=== PATIENT | male | born 1990 | race African-American/Black ===

== ENCOUNTER 2020-03-30 23:08 | Emergency (ER) | payer OTHER ==
[~2020-03-30] VITALS: Ht 165.1 cm; Wt 59.9 kg
[~2020-03-30 23:08] MED LIST: FLAGYL500 MG PO; MOBIC7.5 MG PO
[2020-03-30] MEDS ORDERED: OMEPRAZOLE 20 M20 M1 PO (23:39)
[2020-03-30 23:45] VITALS: BP 123/61
== END 2020-03-30 23:42 | disposition home or self-care (01) ==
LOC: ER 23:08
DX: K21.9 Gastro-esophageal reflux disease without esophagitis (principal)

== ENCOUNTER 2020-06-24 16:23 | Emergency (ER) | payer OTHER ==
[~2020-06-24] VITALS: Ht 162.6 cm; Wt 59.0 kg
[~2020-06-24 16:23] MED LIST changes: +OMEPRAZOLE 20 M20 M1 PO
[2020-06-24 16:36] LABS: URINE BILIRUBIN NEGATIVE (Negative); URINE BLOOD 2+ (Negative); URINE CLARITY SL CLOUDY; URINE COLOR YELLOW; URINE GLUCOSE-RANDOM* NEGATIVE (Negative); URINE KETONES NEGATIVE (Negative); URINE NITRITE-REFLEX NEGATIVE (Negative); URINE PROTEIN (DIPSTICK) NEGATIVE (Negative); URINE SPECIFIC GRAVITY <= 1.005 (1.005-1.035); URINE UROBILINOGEN 0.2 E.U./dl (0.2-1.0)
[2020-06-24 16:41] LABS: URINE LEUKOCYTES-REFLEX 3+ (Negative)
[2020-06-24 17:07] LABS: URINE WBC-REFLEX >25 Many /HPF (0-5)
[2020-06-24 17:08] LABS: BACTERIA-REFLEX 1-9 Few /HPF (None Seen); CASTS None Seen /LPF (None Seen); CRYSTALS None Seen /LPF (None Seen); SQUAMOUS None Seen /LPF (0-3); URINE RBC 0-2 Rare /HPF (0-2)
[2020-06-24 17:53] VITALS: BP 122/69
== END 2020-06-24 17:54 | disposition home or self-care (01) ==
LOC: ER 16:23
PROVIDERS: Physician Assistant
DX: Z20.2 Contact with and (suspected) exposure to infections with a predominantly sexual mode of transmission (principal); R30.0 Dysuria; R36.9 Urethral discharge, unspecified; R10.9 Unspecified abdominal pain

== ENCOUNTER 2020-08-27 17:43 | Emergency (ER) | payer OTHER ==
[~2020-08-27] VITALS: Ht 165.1 cm; Wt 59.0 kg
[2020-08-27] MEDS ORDERED: SUDOGEST30 MG PO (22:03)
[2020-08-27] MEDS ORDERED: IBUPROFEN 600600 M1 PO (22:03)
[2020-08-27 22:26] VITALS: BP 111/56
== END 2020-08-27 22:28 | disposition home or self-care (01) ==
LOC: ER 17:43
DX: J06.9 Acute upper respiratory infection, unspecified (principal); Z20.828 Contact with and (suspected) exposure to other viral communicable diseases

== ENCOUNTER 2021-05-01 17:05 | Emergency (ER) | payer OTHER ==
[~2021-05-01] VITALS: Ht 165.1 cm; Wt 61.2 kg
[~2021-05-01 17:05] MED LIST changes: +IBUPROFEN 600600 M1 PO; +SUDOGEST30 MG PO
[2021-05-01 17:26] VITALS: BP 112/61
[2021-05-01 18:10] LABS: URINE BILIRUBIN NEGATIVE (Negative); URINE BLOOD NEGATIVE (Negative); URINE CLARITY CLEAR; URINE COLOR YELLOW; URINE GLUCOSE-RANDOM* NEGATIVE (Negative); URINE KETONES NEGATIVE (Negative); URINE NITRITE-REFLEX NEGATIVE (Negative); URINE PROTEIN (DIPSTICK) NEGATIVE (Negative); URINE UROBILINOGEN 0.2 E.U./dl (0.2-1.0)
[2021-05-01 18:13] LABS: URINE LEUKOCYTES-REFLEX 1+ (Negative)
[2021-05-01 18:15] LABS: ABSOLUTE NEUTROPHILS 2.9 thou/uL (1.4-8.2); BASOPHILS 1.2 % (0.0-2.0); EOSINOPHILS 8.9 % (0.0-3.0); HEMATOCRIT 45.8 % (42.0-52.0); HEMOGLOBIN 15.5 gm/dL (14.0-18.0); LYMPHOCYTES 31.1 % (24.0-44.0); MCH 31.4 pg (26.0-34.0); MCHC 33.9 g/dL (28.0-37.0); MCV 92.4 fL (80.0-100.0); MONOCYTES 9.9 % (1.0-8.0); PLATELET COUNT 256 thou/uL (150-400); POLYS 48.9 % (36.0-66.0); RBC 4.95 mil/uL (4.50-6.00); RDW 14.4 % (10.5-14.5); WBC 5.9 thou/uL (4.0-11.0)
[2021-05-01 18:24] LABS: CASTS None Seen /LPF (None Seen); MUCUS 0-3 Light strn/LPF (None Seen); SQUAMOUS 0-3 Few /LPF (0-3)
[2021-05-01 18:25] LABS: BACTERIA-REFLEX 1-9 Few /HPF (None Seen); CRYSTALS None Seen /LPF (None Seen); URINE RBC None Seen /HPF (NONE SEEN); URINE WBC-REFLEX 6-15 Few /HPF (0-5)
[2021-05-01 18:25] LABS: CALCIUM 9.6 mg/dL (8.5-10.1); CREATININE 1.4 mg/dL (0.7-1.3); POTASSIUM 4.7 mmol/L (3.5-5.1)
[2021-05-01 18:31] LABS: ALBUMIN 4.5 g/dL (3.4-5.0); TOTAL BILIRUBIN 0.4 mg/dL (0.2-1.0); TOTAL PROTEIN 8.1 g/dL (6.4-8.2)
[2021-05-01] MEDS ORDERED: DOXYCYCLINE 10100 MG PO (20:40)
== END 2021-05-01 21:35 | disposition home or self-care (01) ==
LOC: ER 17:05
PROVIDERS: Physician Assistant
DX: N39.0 Urinary tract infection, site not specified (principal); Z20.2 Contact with and (suspected) exposure to infections with a predominantly sexual mode of transmission; A64 Unspecified sexually transmitted disease